=== PATIENT | male | born 2005 | race Asian ===

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

== ENCOUNTER 2023-05-26 | Emergency (ER) | payer OTHER ==
[~2023-05-26] VITALS: Ht 172.7 cm; Wt 63.5 kg
[~2023-05-26] MED LIST: ARIP10TA9 PO; PRO20 PO
[2023-05-26 00:15] VITALS: BP_SYST 138; PULSE 120; RESP 20; TEMP 98.4; O2SAT 96
[2023-05-26] MEDS: LORazepam 1 MG TABLET PO ONE (00:27)
[2023-05-26 00:29] VITALS: TEMP 98.4
[2023-05-26 01:12] VITALS: BP_SYST 125; PULSE 94; RESP 16; O2SAT 95
== END 2023-05-26 01:12 | disposition home or self-care (01) ==
LOC: SED
DX: F41.9 Anxiety disorder, unspecified (principal); Z79.899 Other long term (current) drug therapy
CPT/HCPCS: 99283